=== PATIENT | female | born 1975 | race Caucasian/White ===

== ENCOUNTER 2019-03-14 11:04 | Outpatient (CLI) | payer OTHER ==
[2019-03-14 16:48] VITALS: BP 100/60
--- NOTE | 2019-03-14 16:48 | SLEEP CARE CONSULTATION ---
Information from patient questionnaire entered by Marian Vences. I have reviewed and concur with the information entered by Marian Vences. This document represents the service I personally performed and the decisions made by me, Oc Gamble MD, [facility]. History of Present Illness Reason for Visit: New patient Chief Complaint: reports: Unrefreshed sleep, Excessive daytime sleepiness, Observed pauses in breathing, Frequent awakenings at night Duration of Symptoms: 1-2 years Usual bedtime: 10:00pm Time it takes to fall asleep: 30 minutes Snores at night: Yes Observed to quit breathing while asleep: No Sleeps alone due to snoring: No Number of times waking at night: 3-4 Reasons for waking at night: reports: Bathroom, Other (unknown reasons) Toss, Turn, or Twitch while sleeping: Yes Recalls having dreams: Yes Usually gets out of bed at: 6:30-7:00 am Feels refreshed in the morning: No Morning headache: Yes (sometimes) Sleepy or fatigued during the day: Yes Ever fallen asleep while driving: No Takes day naps: No Dreams during day naps: No Prior sleep studies: No Additional HPI information: I had the pleasure of seeing Mrs. Sanford today regarding the possibility of her having a sleep disorder. As you know, she is a 43 year old lady who complains of frequent awakenings, unrefreshed sleep, and persistent fatigue. The patient tells me that she normally goes to bed around 10 pm, and it takes her approximately 15 minutes to fall asleep. She has been told that she snores at night. She has never been observed to stop breathing in her sleep. Her spouse sleeps in the same bed. He snores loudly. She can recall waking up on the average of 3 - 4 times during the night. Most of the time she wakes up because of having to use the bathroom. She has never awakened because of her own snoring, choking, or having to gasp for air. There is a lot of tossing and turning in her sleep. She kicks. No somniloquy (sleep talking) or somnambulism (sleep walking). Generally she can recall having dreams. In the morning she usually gets up out of the bed around 6:30 a.m. not feeling refreshed nor rested. She occasionally has a morning headache. During the day she complains of feeling fatigued but not particularly sleepiness. Her score on Viking Sleepiness Scale is 4 out of 24. She has never fallen asleep while driving nor has had any accident due to sleepiness. She usually does not take naps during the day. Upon falling asleep during the day she denies having vivid dreams. She denies having symptoms of restless leg syndrome. She reports having impaired concentration during the day. 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 Patient is and lives in [place]. Have you smoked in the past 12 months: No Alcohol use: No Caffeine use: Yes Caffeine amount and frequency: 1 drink/day Allergies and Home Medications Known drug allergies: No Home medication list reviewed: Yes (Nexium) Review of Systems Weight loss over past 5 years: 27 Cardiovascular: denies: high blood pressure, palpitations, chest pain, irregular heart rate or pulse, leg or foot swelling, have to sleep sitting up, other Respiratory: denies: shortness of breath, wheeze, sputum production, chronic cough, other Gastrointestinal: reports: heartburn Urinary: denies: incontinence, frequency, urgency, impotence, other Neurological: denies: headaches, seizure, head trauma, disorientation, speech dysfunction, gait or balance problems, fainting or unconsciousness, other Psychiatric: reports: anxiety Ear/Nose/Throat: reports: tonsillectomy (1981), wisdom teeth removed (1995) Musculoskeletal: reports: back pain Physical Exam Vital signs obtained and entered by: Dr. Gamble Blood Pressure: 100/60 Heart Rate: 67 O2 Saturation: 99 Height: 5 ft 2 in Weight (kg): 57.606 kg Body Mass Index: 23.2 BMI Classification: Healthy weight HEENT: No craniofacial malformation Nostrils: patent to airflow Turbinates: normal Septum: midline Mouth and throat: narrow oropharynx Soft palate: long Hard palate: normal Uvula: normal Uvula visualization: 25% Mallampati Class III Tongue: normal in size Tonsils: absent bilaterally Chin and jaw: normal size and position Neck: normal w/o lymphadenopathy or thyromegaly Heart: regular rate and rhythm Lungs: clear bilaterally Abdomen: soft, non-tender Extremities: no edema or clubbing Neurologic: intact, no focal deficits Impression and Plan IMPRESSION: 1. Possible Obstructive Sleep Apnea-Hypopnea Syndrome, as suggested by history of snoring, frequent awakenings during the night, unrefreshed sleep, occasional morning headache, and persistent fatigue. Narrow oropharynx is a common predisposing factor for obstructive sleep apnea-hypopnea syndrome. Pathophysiology of sleep-disordered breathing was discussed. I recommend proceeding to polysomnography to confirm the diagnosis and to assess severity. I informed the patient of what the sleep studies involve and after some discussion, she agreed to proceed. Plan: 1. Schedule polysomnography and return in 1 to 2 weeks after the study to discuss result and initiate therapy. 2. Avoid long distance driving or when feeling sleepy. 3. Avoid alcohol, sedative and muscle relaxant around bedtime. I spent 100% of this 15 minute visit face to face with the patient with greater than 50% of this was spent time counseling the patient and coordination of care.
== END 2019-03-14 11:05 | disposition home or self-care (01) ==
LOC: SC 11:04
PROVIDERS: ATTEND Internal Medicine Pulmonary Disease
DX: R06.83 Snoring (principal); G47.8 Other sleep disorders; R51 Headache; R53.83 Other fatigue
CPT/HCPCS: 99203; 99212

== ENCOUNTER 2020-05-11 15:40 | Outpatient (CLI) | payer OTHER ==
--- NOTE | 2020-05-11 17:15 | MRI Report ---
PROCEDURE: Knee RT W/O INDICATIONS: RT KNEE PAIN TECHNIQUE: Noncontrast sagittal PD fast spin echo and T2 fast spin echo with fat saturation, sagittal 3-D gradie nt sequence with fat saturation; coronal T1 spin echo and PD fast spin echo with fat saturation, and axial PD fast spin echo with fat saturation through the knee. COMPARISON: None. FINDINGS: Image quality: Excellent. Menisci: Medial meniscus intact. Lateral meniscus intact. Cruciate ligaments: Anterior cruciate ligament appears intact. Posterior cruciate ligament appears intact. Medial structures: The medial collateral ligament appears intact. The semimembranosus tendon appears intact. Visualized portions of the pes anserinus tendons appear normal. No abnormal bursal fluid. Lateral structures: Lateral collateral ligament appears grossly intact. Biceps femoris tendon appears intact. Iliotibial band within normal limits. Popliteus tendon within normal limits. Anterior structures: Mild patellar tendinopathy, with prepatellar and superficial infrapatellar edema. The quadriceps tendon appears intact. Medial and lateral patellofemoral ligaments appear grossly intact. Patellar alignment is normal. Hoffa's fat pad unremarkable. Bones and cartilage: No bone marrow contusions or fractures. Within the medial compartment, diffuse surface fraying of the femoral and tibial cartilage Within the lateral compartment, no focal cartilage defect Within the patellofemoral compartment, no focal cartilage defect Joint space: No joint effusion. Smith's cyst is noted measuring approximately 8 cm in the cephalocaudad dimension. No specific evidence of loose body identified. IMPRESSION: Mild patellar tendinopathy Mild degenerative joint disease Smith's cyst as above Reviewed by: Joni Adam MD on 05/11/2020 5:13 PM PDT Approved by: Joni Adam MD on 05/11/2020 5:13 PM PDT Station ID: [id number]
== END 2020-05-11 15:41 | disposition home or self-care (01) ==
LOC: DI 15:40
PROVIDERS: ATTEND Family Medicine
DX: M17.11 Unilateral primary osteoarthritis, right knee (principal); M71.21 Synovial cyst of popliteal space [Baker], right knee

== ENCOUNTER 2020-12-31 19:06 | Emergency (ER) | payer OTHER ==
[2020-12-31 19:19] VITALS: BP 140/80
[2020-12-31] MEDS ORDERED: BUFFERED LIDOCAINE 10 ML SYRINGE SUBQ STA (19:49)
--- NOTE | 2020-12-31 19:50 | ED Physician Documentation ---
PD HPI WOUND RECHECK - Stated complaint Stated Complaint: LT UNDERARM RASH PAIN - Chief complaint Chief Complaint: Wound - Histroy obtained from History obtained from: Patient (She noticed a firm nonpainful mass to the lateral left breast about 4 weeks ago. A few days ago she and her anesthesiologist tried to squeeze it thinking they could pop it. Subsequently over the last 24 hours has become exquisitely painful and tender. No fevers.) Review of Systems Constitutional: reports: Reviewed and negative Eyes: reports: Reviewed and negative Ears: reports: Reviewed and negative Nose: reports: Reviewed and negative Throat: reports: Reviewed and negative PD PAST MEDICAL HISTORY - Past Surgical History Past Surgical History: No - Present Medications Home Medications: Ambulatory Orders Medication Instructions Recorded Confirmed cephALEXin [Keflex] 500 mg PO Q6H #28 cap 12/31/20 - Allergies Allergies/Adverse Reactions: Allergies Allergy/AdvReac Type Severity Reaction Status Date / Time No Known Drug Allergies Allergy Verified 12/31/20 19:19 - Social History Does the pt smoke?: No Smoking Status: Never smoker PD ED PE NORMAL - Vitals Vital signs reviewed: Yes - General General: Alert and oriented X 3, No acute distress - HEENT HEENT: PERRL, EOMI - Neck Neck: Supple, no meningeal sign, No bony TTP - Extremities Extremities: Other (On the lateral side of the left breast there is a pinpoint pore, it is quite tender around there with some surrounding cellulitis. Bedside ultrasound shows a small septated cystic mass.) - Neuro Neuro: Alert and oriented X 3, Normal speech Results - Vitals Vitals: Vital Signs - 24 hr 12/31/20 19:17 Temperature 36.8 C Heart Rate 80 Respiratory 16 Rate Blood Pressure 140/80 H O2 Saturation 98 Oxygen O2 Source Room air - Labs Labs: Microbiology 12/31/20 20:22 Wound Culture - Preliminary Breast - Left Procedures - Abscess I&D (location) L lateral breast Preparation: Confirmed with ultrasound, Betadine, Lidocaine 1% Incision: Incised with scalpel, Purulent drainage (sebaceous), Loculations broken, Packed (with 1/4 in ch packing), Culture obtained Other: Pt tolerated well, Dressing applied, Antibiotic prescribed Departure - Departure Disposition: 01 Home, Self Care Clinical Impression: Sebaceous cyst of breast Qualifiers: Laterality: left Qualified Code(s): N60.82 - Other benign mammary dysplasias of left breast Condition: Good Record reviewed to determine appropriate education?: Yes Instructions: ED Abscess IandD Follow-Up: Ivet English MD [Provider Admit Priv/Credential] - Prescriptions: cephALEXin [Keflex] 500 mg PO Q6H #28 cap Comments: Packing removal in 48 hours or so. Follow-up with Dr. English, as discussed you will need to talk with your PCM about a formal referral. We are performing a wound culture, the results should be done in 48-72 hours. If antibiotic change is necessary we will call you. Return if worse in the meantime, especially if you develop increased pain, fevers, cannot keep down the medication. Otherwise follow-up with your physician in approximately 2-3 days. Discharge Date/Time: 12/31/20 20:32
[2020-12-31] MEDS ORDERED: cephALEXin 250 MG CAPSULE PO STA (20:23)
== END 2020-12-31 20:32 | disposition home or self-care (01) ==
LOC: ED 19:06
DX: N60.82 Other benign mammary dysplasias of left breast (principal); N61.0 Mastitis without abscess
CPT/HCPCS: 10061; 87070; 87205; 99283; 99284; A9270